=== PATIENT | male | born 1995 | race Caucasian/White ===

== ENCOUNTER 2017-02-17 01:22 | Emergency (ER) | payer OTHER ==
[~2017-02-17] VITALS: Ht 193 cm; Wt 93.0 kg
[2017-02-17 01:33] VITALS: Ht 193 cm; Wt 93.0 kg
[2017-02-17 03:03] VITALS: BP 123/76
== END 2017-02-17 03:03 | disposition other institution (70) ==
LOC: ED 01:22
DX: Z02.89 Encounter for other administrative examinations (principal)